=== PATIENT | female | born 1990 | race Caucasian/White ===

== ENCOUNTER 2017-01-17 09:55 | Outpatient (CLI) | payer BC ==
[2017-01-24] MEDS ORDERED: MOTRIN-DPS800 MG PO (10:45)
[2017-01-24] MEDS ORDERED: PRENATAL VIT1 TAB PO (10:45)
[2017-01-24] MEDS ORDERED: NIPPLECREAM TP (10:46)
[2017-01-24] MEDS ORDERED: COLACE-DPS100 MG PO (10:46)
== END 2017-01-17 13:30 | disposition home or self-care (01) ==
LOC: WOR 09:55 → 2LDRP 09:55 → BC 09:55 → 2LDRP 13:30 → WOR 13:30 → BC 01-18 08:00
DX: O21.2 Late vomiting of pregnancy (principal); O99.89 Other specified diseases and conditions complicating pregnancy, childbirth and the puerperium; R19.7 Diarrhea, unspecified; Z3A.39 39 weeks gestation of pregnancy

== ENCOUNTER 2017-01-22 06:30 | Inpatient (IN) | payer BC ==
[~2017-01-22] VITALS: Ht 167.6 cm; Wt 94.8 kg
--- NOTE | ~2017-01-22 | FD ---
ADMIT: 01/22/2017 RM/LOC: 228 [facility] MR#: [id number] [address] GERALDINE DOS SANTOS [address] [place] [address] Final Diagnosis SEX: F AGE: 27 : 1990 ADMISSION DATE: 01/22/2017 DISCHARGE DATE: 01/23/2017 FINAL DIAGNOSIS: 1. A 27-year-old 2 para 2-0-0-2, status post spontaneous vaginal delivery at 40 weeks 2 days. 2. Rhesus negative. 3. Group B Streptococcus positive, status post treatment. PROCEDURE: 1. Spontaneous vaginal delivery. 2. Epidural catheter placement and removal. Mary Jane Everett MD Resident / Kate Andre MD / juan carlos JOB #: [id number] CC: Kate Andre MD, Attending Physician UNKNOWN, Family Physician
[2017-01-24] MEDS ORDERED: PRENATAL VIT1 TAB PO (10:45)
[2017-01-24] MEDS ORDERED: MOTRIN-DPS800 MG PO (10:45)
[2017-01-24] MEDS ORDERED: NIPPLECREAM TP (10:46)
[2017-01-24] MEDS ORDERED: COLACE-DPS100 MG PO (10:46)
--- NOTE | 2017-02-19 07:46 | OR ---
ADMIT: 01/22/2017 RM/LOC: 228 [facility] MR#: [id number] [address] GERALDINE DOS SANTOS [address] [place] [address] Operative/Delivery Room Report SEX: F AGE: 27 : 1990 SURGERY DATE: 01/22/2017 SURGEON: Kate Andre MD PROCEDURE: Spontaneous vaginal delivery. RESIDENT: Mary Jane Everett MD Resident PRE-PROCEDURE DIAGNOSES: 1. A 27-year-old 2 para 1-0-0-1 with intrauterine at 40 weeks 4 days via LMP, confirmed with ultrasound. 2. Rhesus negative. 3. Group B Streptococcus positive, status post antibiotic prophylaxis. 4. History of small for gestational age in last . POSTPROCEDURE DIAGNOSES: 1. A 27-year-old 2 para 2-0-0-2, status post spontaneous vaginal delivery at 40 weeks 4 days. 2. Rhesus negative. 3. Group B Streptococcus positive. ANESTHESIA: Epidural. ESTIMATED BLOOD LOSS: 250 mL. FINDINGS: Viable male infant with a weight of 3570 g, scores of 9 and 9. Placenta with normal three-vessel cord. COMPLICATIONS: None, the patient tolerated procedure well. SPECIMENS: Cord blood. HOSPITAL COURSE AND PROCEDURE: This is a 27-year-old -0-0-1, with an intrauterine at 40 weeks 4 days, who presented to the [facility] for induction of labor. The patient was admitted, Cytotec cervical ripening was performed, and artificial rupture of membranes was performed. The patient ultimately progressed to complete without further augmentation. The patient was complete and placed in a dorsal lithotomy position. The patient was prepped and draped in a normal sterile fashion. Expulsive efforts were begun. The 's head was brought to the perineum and delivered over an intact perineum. The head restituted to the right. The anterior and posterior shoulder delivered without difficulty. No nuchal cord was present. The body followed. The was vigorous and crying, was placed on the maternal abdomen. After 1 minute of delayed cord clamping, the cord was ADMIT: 01/22/2017 RM/LOC: 228 [facility] MR#: [id number] [address] GERALDINE DOS SANTOS [address] [address] Operative/Delivery Room Report SEX: F AGE: 27 : 1990 clamped and cut. Cord blood was collected, cord gas was not collected. Pitocin was administered per protocol. The placenta delivered spontaneously with a 3-vessel cord. The vagina, perineum, and cervix were inspected for lacerations. No lacerations were noted. The fundus was found to be firm below the umbilicus. All tissues were found to be hemostatic and all counts were correct x2. At the completion of the procedure, the patient's epidural catheter was removed, tip was intact at time of removal. and mother were stable in mother's room at the completion of the procedure. Dr. Kate Andre was present for the entire delivery and procedure. Mary Jane Everett MD Resident / Kate Andre MD / patel JOB #: [id number] CC: Kate Andre, Attending Physician UNKNOWN, Family Physician
--- NOTE | 2017-02-19 07:46 | HP ---
ADMIT: 01/22/2017 RM/LOC: 228 [facility] MR#: [id number] [address] GERALDINE DOS SANTOS [address] [place] [address] History and Physical SEX: F AGE: 27 : 1990 DATE OF SERVICE: CHIEF COMPLAINT: Induction of labor. HISTORY OF PRESENT ILLNESS: This 27-year-old, G2, P1-0-0-1 with intrauterine at 40 weeks 4 days who presents for induction of labor. She denies contractions at the time of presentation. No leaking of fluid or vaginal bleeding. Reports normal movement. COMPLICATIONS: She has a history of Rh negative, status post RhoGAM this as well as a history of SGA infant with normal growth scan this . PAST MEDICAL HISTORY: Rh negative. SURGICAL HISTORY: Tonsillectomy in 1991. MEDICATIONS: 1. vitamin. 2. Diclegis. 3. Zofran. ALLERGIES: SHE HAS SEASONAL ALLERGIES. NO KNOWN MEDICAL ALLERGIES. SOCIAL HISTORY: She is . She denies tobacco use, alcohol use, or recreational drug use. FAMILY HISTORY: She has a history of pancreatic cancer in her uncle and maternal grandmother. Diabetes in multiple grandparents. Thyroid disease in maternal grandmother and aunt. REVIEW OF SYSTEMS: She denies headache, changes of vision, chest pain, or shortness of breath. No nausea, vomiting, diarrhea, or constipation. She previously had a viral illness approximately 1 week ago which has since resolved. LABORATORY DATA: Blood type is O negative. Direct antibody test is negative. GBS is positive. One-hour glucose tolerance test 116. Hepatitis B negative, RPR nonreactive, rubella immune. Gonorrhea and chlamydia negative. HIV negative. PHYSICAL EXAMINATION: VITAL SIGNS: Blood pressure 120/77, pulse 77, respiratory rate 16, she is afebrile, saturating 97% on room air. GENERAL: She is alert and oriented, in no acute distress. HEART: Regular rate and rhythm. LUNGS: Clear to auscultation bilaterally. ABDOMEN: Gravid with an estimated weight of 3500 g. EXTREMITIES: She has trace edema in bilateral lower extremities. ADMIT: 01/22/2017 RM/LOC: 228 [facility] MR#: [id number] [id number] [address] GERALDINE DOS SANTOS [address] [place] [address] History and Physical SEX: F AGE: 27 : 1990 heart tones 120 baseline, moderate variability, positive accelerations, no decelerations. She is cordelia every 7 minutes at the time of presentation. Sterile vaginal exam per nursing staff, 2 cm. ASSESSMENT AND PLAN: This is a 27-year-old, 2, para 1-0-0-1 with intrauterine at 40 weeks 4 days who presents for induction of labor. 1. Admit to Birthing Center. Dow score of 6. Plan to start with Cytotec for cervical ripening. We will reassess cervical exam in 4 hours. Consents were obtained. Blood type O negative. Plan for cord blood evaluation following delivery. CBC upon admission. 2. Group B Streptococcus positive. Plan to start penicillin antibiotic prophylaxis. 3. heart tones category 1 tracing, reassuring. Continue to monitor. 4. Maternal well being. She is doing well at this time. Continue to reassess. The patient was seen and discussed with attending physician on day of admission, Dr. Kate Andre. Mary Jaen Everett MD Resident / Kate Andre MD / patel JOB #: [id number] CC: Kate Andre, Attending Physician UNKNOWN, Family Physician
== END 2017-01-23 17:10 | disposition home or self-care (01) | DRG 775 ==
LOC: 2LDRP 06:30 → BC 06:30 → 2LDRP 07:55
PROVIDERS: ADMIT Obstetrics & Gynecology
PROC: 10907ZC Drainage of Amniotic Fluid, Therapeutic from Products of Conception, Via Natural or Artificial Opening (ICD-10-PCS; principal; 2017-01-22)
PROC: 10E0XZZ Delivery of Products of Conception, External Approach (ICD-10-PCS; principal; 2017-01-22)
PROC: 3E0P7GC Introduction of Other Therapeutic Substance into Female Reproductive, Via Natural or Artificial Opening (ICD-10-PCS; principal; 2017-01-22)
DX: O48.0 Post-term pregnancy (principal); O99.824 Streptococcus B carrier state complicating childbirth; Z3A.40 40 weeks gestation of pregnancy; Z37.0 Single live birth